=== PATIENT | female | born 1960 | race Asian ===

== ENCOUNTER → 2017-01-25 | Outpatient (CLI) | payer BC ==
[2017-01-25 09:42] LABS: BASO % 0.8 %; BASO ABS # 0.03 K/uL (0-0.2); COMPLETE YES; EOS % 2.1 %; LYMPH % 35.2 %; LYMPH ABS # 1.36 K/uL (1.2-3.4); MEAN CELL VOLUME 91.6 fL (80-100); MEAN CORPUSCULAR HEMOGLOBIN 30.5 pg (25-34); MEAN CORPUSCULAR HGB CONC 33.3 g/dl (32-36); NEUT % 54.9 %; PLATELET COUNT 322 K/uL (130-400); RED BLOOD COUNT 3.93 M/uL (4.2-5.4); WHITE BLOOD COUNT 3.86 K/uL (4.8-10.8)
[2017-01-25 09:50] LABS: URINE APPEARANCE CLOUDY (CLEAR); URINE BILIRUBIN NEG (NEG); URINE COLOR YELLOW; URINE NITRITE NEG (NEG); URINE PH 8.5 (4.5-7.5); URINE SPECIFIC GRAVITY 1.017 (1.000-1.030); UROBILINOGEN NEG (NEG)
[2017-01-25 09:52] LABS: BLOOD UREA NITROGEN 9 mg/dl (7-18); BUN/CREATININE RATIO 12.8 (10-20); CARBON DIOXIDE 29 mmol/L (21-32); CHLORIDE 103 mmol/L (98-107); CHOLESTEROL 230 mg/dl (0-200); CREATININE 0.72 mg/dl (0.60-1.20); GLUCOSE 94 mg/dl (70-99); POTASSIUM 3.9 mmol/L (3.5-5.1); SODIUM 140 mmol/L (136-145); TRIGLYCERIDES 126 mg/dl (0-150); VERY LOW DENSITY LIPOPROT CALC 25 mg/dl
[2017-01-25 09:56] LABS: MANUAL MICROSCOPIC REQUIRED? NO; REVIEW REQ? NO
[2017-01-25 09:58] LABS: ESTIMATED AVERAGE GLUCOSE 123 mg/dl; HA1C FLAG Normal (Normal)
[2017-01-25 10:02] LABS: CHOLESTEROL/HDL RATIO 3.5; HDL CHOLESTEROL 66 mg/dl; LDL CHOLESTEROL CALCULATED 139 mg/dl
== END | disposition home or self-care (01) ==
LOC: C.LAB1850 08:18
PROVIDERS: ATTEND Internal Medicine
DX: E78.00 Pure hypercholesterolemia, unspecified (principal)

== ENCOUNTER → 2017-04-10 | Outpatient (CLI) | payer BC | END | disposition home or self-care (01) | LOC: C.PAPS 16:33 | PROVIDERS: ATTEND Obstetrics & Gynecology | DX: Z01.411 Encounter for gynecological examination (general) (routine) with abnormal findings (principal) ==

== ENCOUNTER → 2017-04-13 | Outpatient (CLI) | payer BC ==
--- NOTE | 2017-04-13 09:49 | DIAGNOSTIC IMAGING REPORT ---
THYROID ULTRASOUND HISTORY: NECK SWELLING COMPARISON: Thyroid ultrasound 01/19/2011. FINDINGS: Right lobe: 4.6 x 1.6 x 1.5 cm. 2 small hypoechoic nodules measuring 8 and 4 mm in size. These do not meet sonographic tear for biopsy. Left lobe: 4.5 x 1.9 x 1.9 cm. There is a 8 mm hypoechoic nodule within the lower pole. There is also a dominant solid and cystic heterogeneous nodule within the upper pole which measures 2.0 x 1.4 x 1.7 cm. This is increased in size from the prior study when it measured 1.2 x 0.7 cm. Isthmus: 3 mm in thickness. No nodules. IMPRESSION: Increase in size in the dominant 2 cm complex nodule within the upper pole of the left thyroid lobe. Ultrasound guided fine-needle aspiration is recommended for further evaluation of this nodule. Electronically signed by: Bryan Fernandez M.D. 04/13/2017 9:48 AM Dictated Date/Time: 04/13/2017 9:46 AM
== END | disposition home or self-care (01) ==
LOC: C.ULTR 09:15
PROVIDERS: ATTEND Physician Assistant
DX: R22.1 Localized swelling, mass and lump, neck (principal)

== ENCOUNTER → 2017-04-26 | Outpatient (CLI) | payer BC ==
--- NOTE | 2017-04-26 14:40 | DIAGNOSTIC IMAGING REPORT ---
GUIDANCE NEEDLE PLACEMENT CLINICAL HISTORY: 57 years-old Female presenting with THYROID NODULE. TECHNIQUE: Real-time grayscale and limited color Doppler ultrasound imaging of the thyroid and base of the neck was performed for ultrasound-guided fine-needle aspiration. COMPARISON: Ultrasound from 04/13/2017. PROCEDURE: The risks, benefits, and alternatives to the procedure were discussed with the patient. Written informed consent was obtained. The patient was placed supine in ultrasound, and the 2 cm nodule in the left lobe of the thyroid was localized by ultrasound and selected for fine needle aspiration. The left neck was prepped and draped in the usual sterile fashion. The nodule was aspirated under ultrasound guidance with 2 passes utilizing 25-gauge needles. Specimens were reviewed by the pathologist at the time of biopsy and were deemed adequate for diagnosis. The patient tolerated the procedure well and left the department in satisfactory condition. IMPRESSION: Successful fine-needle aspiration of the left thyroid nodule as above. Electronically signed by: Radames Raymundo M.D. 04/26/2017 2:39 PM Dictated Date/Time: 04/26/2017 2:38 PM
--- NOTE | 2017-04-26 14:42 | Discharge Instructions ---
Discharge Instructions Procedure Procedure Date: Apr 26, 2017. Reason for visit: Thyroid Nodule. Discharge Discharge Date: Apr 26, 2017. Discharge Diagnosis: Successful ultrasound guided fine needle aspiration of the 2 cm left thyroid nodule. Medications Restart Stopped Medication(s): Resume home meds Instructions Activity Recommendations: No limitations Return to School/Work: no limitations Recommended Home Diet: No Limitations Provider Instructions: ACTIVITY RECOMMENDATIONS: * Rest today. * Resume regular activity in one day. MEDICATIONS: * May take Tylenol or Ibuprofen as needed for pain. DIET: * Resume previous diet. SPECIAL CARE INSTRUCTIONS: Call your doctor if: * Temperature above 101 degrees F. * Pain not relieved by pain medicine ordered. * Increased drainage or redness from incision. * Increasing chest pain or shortness of breath. * Notify your doctor with any questions or concerns. * If you have specific questions or concerns for Radiology, please call us at . FOLLOW UP VISIT: Follow-up with Referring Physician as scheduled. Allergies Coded Allergies: No Known Allergies (Verified Allergy, Unknown, 09/26/02) Uncoded Allergies: N (Allergy, Unknown, 09/26/02) NKDA-SENSITIVE TO MOST MEDS (Allergy, Unknown, 09/26/02) NKFA (Allergy, Unknown, 09/26/02) U (Allergy, Unknown, 09/26/02) [place] Echols Recommendations: Call your doctor if: * Temperature above 101 degrees * Pain not relieved by pain medicine ordered * There is increased drainage or redness from any incision * You have any unanswered questions or concerns. Your Doctors Instructions noted above were prepared by provider Radames Raymundo. Patient Signature Section: Patient Instructions Signature Page Naima Moscoso Patient (or Guardian) Signature/Date: I have read and understand the instructions given to me by my caregivers. Caregiver/RN/Doctor Signature/Date: The above-named patient and/or guardian has received patient instructions on this date. + Original Patient Signature Page (only) stays with chart. Please make copy for patient.
== END | disposition home or self-care (01) ==
LOC: C.ULTR 13:08
PROVIDERS: ATTEND Physician Assistant
DX: E04.1 Nontoxic single thyroid nodule (principal)

== ENCOUNTER → 2017-05-11 | Outpatient (CLI) | payer BC ==
--- NOTE | 2017-05-11 12:46 | DIAGNOSTIC IMAGING REPORT ---
CHEST 2 VIEWS ROUTINE CLINICAL HISTORY: 57 years-old Female presenting with preoperative assessment. TECHNIQUE: PA and lateral views of the chest were obtained. COMPARISON: 09/14/2012. FINDINGS: Cardiomediastinal silhouette normal. Lungs and pleural spaces clear. Osseous structures normal. Upper abdomen normal. IMPRESSION: 1. No acute cardiopulmonary disease. Electronically signed by: Radames Raymundo M.D. 05/11/2017 12:45 PM Dictated Date/Time: 05/11/2017 12:44 PM
== END | disposition home or self-care (01) ==
LOC: C.RAD1850 12:11
PROVIDERS: ATTEND Obstetrics & Gynecology
DX: Z01.818 Encounter for other preprocedural examination (principal)

== ENCOUNTER → 2017-05-31 | Day surgery (SDC) | payer BC ==
[2017-05-18 10:00] VITALS: Ht 151.1 cm; Wt 51.8 kg
[~2017-05-31] VITALS: Ht 151.1 cm; Wt 51.8 kg
[~2017-05-31] MED LIST: ACETIC ACID 4% (WHITE VINEGAR) 30ML ONE; ATROPINE SULFATE 0.1 MG/ML 5ML SYR IV PRN; DEXAMETHASONE SOD INJ 4 MG/ML VIAL ONE; EpHEDrine SULFATE INJ 50 MG/ML AMP IV PRN; FENTANYL CITRATE INJ 50 MCG/1 ML 2 ML VIAL IV PRN; FENTANYL CITRATE INJ 50 MCG/1 ML 2 ML VIAL ONE; FERRIC SUBSULFATE 8 GM VIAL ONE; FLUMAZENIL 0.1 MG/1 ML 10 ML VIAL IV PRN; IBUPROFEN 600 MG TAB PO PRN; IODINE SOLN STRONG 14 ML ONE; KETOROLAC TROMETHAMINE 30 MG/ML VIAL IV. PRN; LABETALOL HCL IV 5 MG/ML 20ML IV PRN; LACTATED RINGER'S 1000ML 1,000 ML IV SCH; LIDOCAINE HCL 2% 2 ML VIAL (20MG/ML) ONE; LIDOCAINE/EPINEPHRINE 1% INJ 50 ML VIAL ONE; MIDAZOLAM HCL 1 MG/ML 2ML VIAL ONE; NALOXONE HCL 0.4 MG/1 ML VIAL/CARP IV PRN; ONDANSETRON INJ 2 MG/ML 2 ML VIAL IV PRN; ONDANSETRON INJ 2 MG/ML 2 ML VIAL ONE; OXYCODONE/ACETAMINOPHEN 5-325 TAB PO PRN; PROMETHAZINE HCL INJ 12.5 MG in SODIUM CHLORIDE 0.9% 50ML 50 ML IV PRN; PROMETHAZINE HCL INJ 25 MG in SODIUM CHLORIDE 0.9% 50ML 50 ML IV PRN; PROPOFOL IV EMULSION 10 MG/ML 20 ML VIAL IV ONE; SODIUM CHLORIDE 0.9% 1000ML 1,000 ML IV SCH
--- NOTE | 2017-05-31 12:15 | History & Physical Bridge - [place] ---
H&P Re-Evaluation Bridge Note: I have examined the patient, reviewed the History & Physical and in the interval since the performance of the History & Physical I have noted the following changes of clinical significance: No changes noted
--- NOTE | 2017-05-31 12:58 | [facility] Post Operative Brief Note ---
Immediate Operative Summary Operative Date May 31, 2017. Pre-Operative Diagnosis Cervical Intraepithelial Neoplasia 1 Post-Operative Diagnosis Same Procedure(s) Performed Colposcopy, Loop Elecrosurgical Excision Procedure, Endocervical Curettage Surgeon Dr. Mari Rn Emergency Room Surgeon(s) None Estimated Blood Loss None Findings distorted Cx Specimens A.) Central Cervix B.) Endocervical Curettings Drains None Anesthesia General, local Complication(s) None Disposition Recovery Room / PACU
--- NOTE | 2017-05-31 12:59 | Discharge Instructions ---
Discharge Instructions Date of Service May 31, 2017. Admission Reason for Admission: Cervical Intraepithelial Neoplasia I Discharge Discharge Diagnosis / Problem: LEEP Discharge Goals Goal(s): Routine recovery after surgery Activity Recommendations Activity Limitations: per Instructions/Follow-up section . Instructions / Follow-Up Instructions / Follow-Up ACTIVITY RECOMMENDATIONS: * Avoid tampons, douching, hot tubs, pools, and intercourse until bleeding has stopped. * May shower as usual. * No strenuous activity for 24-48 hours. After 24-48 hours, you may do anything you feel like doing (driving and sports are okay). SPECIAL CARE INSTRUCTIONS: Special Diet: * Mild nausea may occur in the immediate post-operative period. * Take clear liquids such as tea, cola or bouillon until all nausea has subsided; you may then resume your normal diet. Special Care: * Light bleeding and vaginal spotting can last from a few days to 3-4 weeks. Call your doctor if bleeding becomes heavier than the heaviest part of your period. * Check your temperature twice a day for one week. If it goes above 100.4 degrees Fahrenheit (38.0 Celsius), notify your doctor. NO INTERCOURSE FOR 4 WEEKS * Call your doctor's office for an appointment for 6 weeks after your surgery. FOLLOW-UP VISIT: Call your doctor's office for an appointment for 6 weeks after your surgery. Current Hospital Diet Patient's current hospital diet: Discharge Diet Recommended Diet: Regular Diet Procedures Procedures Performed: Colposcopy, Loop Elecrosurgical Excision Procedure, Endocervical Curettage Pending Studies Studies pending at discharge: no Medical Emergencies . Who to Call and When: Medical Emergencies: If at any time you feel your situation is an emergency, please call 911 immediately. . Non-Emergent Contact Non-Emergency issues call your: Commissioning Specialist . . "Provider Documentation" section prepared by Willis Mari. . VTE Core Measure Inpt VTE Proph given/why not?: Treatment not indicated
--- NOTE | 2017-05-31 13:30 | OPERATIVE REPORT ---
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 POSTOPERATIVE DIAGNOSES: Same. PROCEDURE: Loop electrosurgical excision procedure of cervix and colposcopy and ECC. SURGEON: Dr. Mari. ANESTHETIC: General and local 1% lidocaine with epinephrine. SPECIMENS: Central cervix and ECC. COMPLICATIONS: None. ESTIMATED BLOOD LOSS: Minimal. DRAINS: None. DISPOSITION: Recovery room. DESCRIPTION OF PROCEDURE: Naima was given a general anesthetic. We then viewed her cervix with the colposcope and acetic acid. Cervix was distorted from prior procedures and I could see no obvious dysplasia, though it was somewhat of an inadequate colposcopy as patient is postmenopausal and also multiple procedures. We then injected the cervix at 3, 6, 9 and 12 o'clock taking care to avoid intravascular injection of 1% lidocaine with epinephrine. At this stage, then I used a small loop electrode to excise a small portion of the central cervix out and this was removed easily and then performed an ECC. Ball electrode was then used to coagulate the excision area for hemostasis and then stringent was then applied to the cervix with procto swab. At the end of the procedure, sponge and instrument counts were correct. I attest to the content of the Intraoperative Record and any orders documented therein. Any exception s are noted below.
[2017-05-31 13:58] VITALS: TEMP 36.2
--- NOTE | 2017-05-31 13:58 | Anesthesia Progress Nt - [facility] ---
Anesthesia Post Op Note Date & Time May 31, 2017 at 13:57 Vital Signs Pain Intensity: 0 Vital Signs Past 12 Hours Date Time Temp Pulse Resp B/P (MAP) Pulse Ox O2 Delivery O2 Flow Rate FiO2 05/31/17 13:42 58 14 97 05/31/17 13:42 57 14 05/31/17 13:41 36.8 59 100 Room Air 05/31/17 13:41 101/61 05/31/17 13:37 56 18 05/31/17 13:37 56 18 100 05/31/17 13:36 84/49 05/31/17 13:32 54 16 05/31/17 13:32 54 16 100 05/31/17 13:31 95/63 05/31/17 13:27 55 16 100 05/31/17 13:27 55 16 05/31/17 13:26 98/62 05/31/17 13:25 61 18 05/31/17 13:25 18 05/31/17 13:21 99/64 05/31/17 13:20 60 16 05/31/17 13:20 16 05/31/17 13:18 110/67 05/31/17 13:15 36.9 62 16 110/67 100 Mask 6 05/31/17 11:47 36.6 60 18 103/71 (82) 96 Room Air Notes Mental Status: alert / awake / arousable, participated in evaluation Pt Amnestic to Procedure: Yes Nausea / Vomiting: adequately controlled Pain: adequately controlled Airway Patency, RR, SpO2: stable & adequate BP & HR: stable & adequate Hydration State: stable & adequate Anesthetic Complications: no major complications apparent
[2017-05-31 14:12] VITALS: BP 111/72; PULSE 48; O2SAT 100
== END | disposition home or self-care (01) ==
LOC: X.SURG 11:33
PROVIDERS: ATTEND Obstetrics & Gynecology
DX: R87.612 Low grade squamous intraepithelial lesion on cytologic smear of cervix (LGSIL) (principal); R87.810 Cervical high risk human papillomavirus (HPV) DNA test positive; N88.2 Stricture and stenosis of cervix uteri; E78.00 Pure hypercholesterolemia, unspecified; E07.9 Disorder of thyroid, unspecified; K21.9 Gastro-esophageal reflux disease without esophagitis; Z79.899 Other long term (current) drug therapy

== ENCOUNTER → 2017-11-20 | Outpatient (CLI) | payer OTHER | END | disposition home or self-care (01) | LOC: C.PAPS 09:48 | PROVIDERS: ATTEND Obstetrics & Gynecology | DX: R87.612 Low grade squamous intraepithelial lesion on cytologic smear of cervix (LGSIL) (principal) ==